=== PATIENT | female | born 1965 | race Caucasian/White ===

== ENCOUNTER → 2016-08-09 | Outpatient (CLI) | payer OTHER | END | disposition home or self-care (01) | LOC: NUC 07:11 | DX: R11.0 Nausea (principal) | CPT/HCPCS: 78264; A9541 ==

== ENCOUNTER → 2016-09-01 | Outpatient (CLI) | payer OTHER ==
[~2016-09-01] VITALS: Ht 160 cm; Wt 75.3 kg
[~2016-09-01] MED LIST: HEMP OIL SQ
== END | disposition home or self-care (01) ==
LOC: AMB 11:53
PROC: 0DB58ZX Excision of Esophagus, Via Natural or Artificial Opening Endoscopic, Diagnostic (ICD-10-PCS; principal; 2016-09-01)
PROC: BD41ZZZ Ultrasonography of Esophagus (ICD-10-PCS; principal; 2016-09-01)
PROC: 0FB04ZX Excision of Liver, Percutaneous Endoscopic Approach, Diagnostic (ICD-10-PCS; principal; 2016-09-01)
DX: C78.7 Secondary malignant neoplasm of liver and intrahepatic bile duct (principal); C77.2 Secondary and unspecified malignant neoplasm of intra-abdominal lymph nodes; F41.1 Generalized anxiety disorder; E66.9 Obesity, unspecified; Z68.29 Body mass index [BMI] 29.0-29.9, adult; Z80.0 Family history of malignant neoplasm of digestive organs
CPT/HCPCS: 88305; 88341 TC; 88342 TC; J0330; J1100; J1885; J2250; J2405; J3010

== ENCOUNTER 2016-10-26 07:30 | Day surgery (SDC) | payer OTHER ==
[~2016-10-26] VITALS: Ht 160 cm; Wt 66.0 kg
[~2016-10-26 07:30] MED LIST changes: +ACID CONTROLLER20 MG PO; +LORATADINE10 M2 PO; +PERCOCET 5/31 TABLET PO; +PROMETHAZINE HC25 M1 PO; +SENOKOT S,PE1 TABLET PO; +ZOFRAN4 MG PO
== END 2016-10-26 10:15 | disposition home or self-care (01) ==
LOC: CATH 07:30
DX: T82.514A Breakdown (mechanical) of infusion catheter, initial encounter (principal); C15.9 Malignant neoplasm of esophagus, unspecified
CPT/HCPCS: C1751; J0690; J1644; J2250; J3010; S0020

== ENCOUNTER → 2017-03-28 | Outpatient (CLI) | payer OTHER ==
[~2017-03-28] VITALS: Ht 160 cm; Wt 49.4 kg
[~2017-03-28] MED LIST changes: -LORATADINE10 M2 PO; +MIRALAX255 GM PO; +ZYRTEC10 M3 PO; +[UNRECOGNIZED DRUG - OTHER] PO
== END | disposition home or self-care (01) ==
LOC: AMB 10:55
DX: C15.5 Malignant neoplasm of lower third of esophagus (principal); R09.02 Hypoxemia; C78.7 Secondary malignant neoplasm of liver and intrahepatic bile duct; F32.9 Major depressive disorder, single episode, unspecified; F41.1 Generalized anxiety disorder; E87.6 Hypokalemia; R13.10 Dysphagia, unspecified; Z92.21 Personal history of antineoplastic chemotherapy; Z80.0 Family history of malignant neoplasm of digestive organs; Z80.3 Family history of malignant neoplasm of breast; Z82.49 Family history of ischemic heart disease and other diseases of the circulatory system
CPT/HCPCS: 76000; C1757; C1769; J1100; J2250; J2405; J2765; J3010

== ENCOUNTER 2017-04-13 14:14 | Observation (INO) | payer OTHER ==
[~2017-04-13] VITALS: Ht 160 cm; Wt 49.4 kg
[~2017-04-13 14:14] MED LIST changes: -PERCOCET 5/31 TABLET PO; +PROTONIX40 MG PO; +VICODIN 5-3001 EACH PO
[2017-04-13 15:12] LABS: HEMATOCRIT 28.2 % (36.0-46.0); MCH 30.7 PG (29.0-34.0); MCHC 31.2 G/DL (30.0-36.0); MCV 98.3 FL (83-99); MEAN PLAT.VOLUME 8.9 uM^3 (9.5-12.4); RBC DIS.WIDTH-CV 17.6 % (11.8-14.6); RBC DIS.WIDTH-SD 63.5 % (39-53); RED BLOOD COUNT 2.87 M/uL (3.80-5.20); WHITE BLOOD COUNT 12.6 K/uL (4.1-10.2)
[2017-04-13 15:14] LABS: PLATELET COUNT 262 K/uL (156-360)
[2017-04-13 15:20] LABS: CHLORIDE 97 mEq/L (99-109); POTASSIUM 3.7 mEq/L (3.7-5.4); SODIUM 137 mEq/L (136-147)
[2017-04-13 15:22] LABS: GLUCOSE 79 mg/dL (70-99)
[2017-04-13 15:24] LABS: ANION GAP 16 MEQ/L (2-14)
[2017-04-13 15:26] LABS: GFR ESTIMATE (CALCULATED) > 59 mL/min/
[2017-04-13 15:27] LABS: UREA NITROGEN (BUN) 11 mg/dL (9-23)
[2017-04-13 16:00] LABS: PLAT.SUFFICIENCY ADEQUATE
[2017-04-13 17:22] LABS: TOTAL BILIRUBIN 1.9 mg/dL (0.0-1.0)
[2017-04-13 17:23] LABS: ALKALINE PHOSPHATASE 939 IU/L (3-129)
[2017-04-13 17:26] LABS: DIRECT BILIRUBIN 1.5 mg/dL (0.0-0.3)
[2017-04-13 22:23] LABS: LIPASE 14 U/L (1.0-51.0)
[2017-04-13] MEDS ORDERED: FAMOTIDINE20 MG PO (22:26)
[2017-04-13 23:36] VITALS: BP 130/79
[2017-04-14 04:55] VITALS: BP 122/77
[2017-04-14 05:39] LABS: HEMATOCRIT 24.2 % (36.0-46.0); MCH 30.9 PG (29.0-34.0); MCV 99.6 FL (83-99); MEAN PLAT.VOLUME 9.3 uM^3 (9.5-12.4); PLATELET COUNT 227 K/uL (156-360); RBC DIS.WIDTH-CV 17.9 % (11.8-14.6); RBC DIS.WIDTH-SD 65.1 % (39-53); RED BLOOD COUNT 2.43 M/uL (3.80-5.20); WHITE BLOOD COUNT 9.8 K/uL (4.1-10.2)
[2017-04-14 05:43] LABS: INTER. NORMALIZED RATIO 1.4; PROTHROMBIN TIME 15.9 SEC (10.2-12.9)
[2017-04-14 06:03] LABS: ALKALINE PHOSPHATASE 749 IU/L (3-129); ANION GAP 17 MEQ/L (2-14); CHLORIDE 99 MEQ/L (99-109); DIRECT BILIRUBIN 0.9 mg/dL (0.0-0.3); GFR ESTIMATE (CALCULATED) > 59 mL/min/; GLUCOSE 97 mg/dL (70-99); POTASSIUM 3.8 MEQ/L (3.7-5.4); SAMPLE HEMOLYSIS CHECK 0; SAMPLE ICTERIC CHECK 0; SAMPLE LIPEMIA CHECK 0; SODIUM 138 MEQ/L (136-147); TOTAL BILIRUBIN 1.8 MG/DL (0.0-1.0); UREA NITROGEN (BUN) 11 mg/dL (9-23)
[2017-04-14 07:18] VITALS: BP 139/90
[2017-04-14 08:48] LABS: ADD MIUA? NO; BILIRUBIN NEGATIVE; BLOOD NEGATIVE; COLOR AMBER ((YELLOW)); GLUCOSE (STRIP) NEGATIVE; KETONES 20; LEUKOCYTES NEGATIVE; NITRITE NEGATIVE; PROTEIN (STRIP) NEGATIVE; SPECIFIC GRAVITY 1.019 (1.000-1.030); UCUL ADDED? NO
[2017-04-14 11:23] VITALS: BP 128/79
[2017-04-14 15:24] VITALS: BP 125/82
[2017-04-14 20:33] VITALS: BP 145/92
[2017-04-15 00:01] VITALS: BP 125/77
[2017-04-15 04:38] VITALS: BP 142/84
[2017-04-15 06:04] LABS: HEMATOCRIT 22.4 % (36.0-46.0); MCH 30.6 PG (29.0-34.0); MCHC 31.3 G/DL (30.0-36.0); MCV 97.8 FL (83-99); PLATELET COUNT 215 K/uL (156-360); RBC DIS.WIDTH-CV 17.9 % (11.8-14.6); RBC DIS.WIDTH-SD 64.3 % (39-53); RED BLOOD COUNT 2.29 M/uL (3.80-5.20); WHITE BLOOD COUNT 11.5 K/uL (4.1-10.2)
[2017-04-15 07:15] VITALS: BP 139/90
[2017-04-15 07:41] LABS: ALKALINE PHOSPHATASE 685 IU/L (3-129); CHLORIDE 101 MEQ/L (99-109); GLUCOSE 133 mg/dL (70-99); POTASSIUM 3.6 MEQ/L (3.7-5.4); SAMPLE HEMOLYSIS CHECK 0; SAMPLE ICTERIC CHECK 0; SAMPLE LIPEMIA CHECK 0; SODIUM 137 MEQ/L (136-147); TOTAL BILIRUBIN 1.6 MG/DL (0.0-1.0); UREA NITROGEN (BUN) 9 mg/dL (9-23)
[2017-04-15 08:16] LABS: GFR ESTIMATE (CALCULATED) > 59 mL/min/; MAGNESIUM 1.9 mg/dl (1.3-2.7)
[2017-04-15 08:22] LABS: ANION GAP 12 MEQ/L (2-14)
[2017-04-15 11:45] VITALS: BP 145/99
[2017-04-15] MEDS ORDERED: TRANSDERM-SCOP1 EACH TD (11:49)
[2017-04-15] MEDS ORDERED: METOCLOPRAMIDE10 MG PO (11:49)
[2017-04-15] MEDS ORDERED: HYOSCYAMINE0.125 MG PO (11:49)
== END 2017-04-15 19:38 | disposition home or self-care (01) ==
LOC: EME 14:14 → EDOF 21:00 → ENRESERV 21:19 → 5WEST 23:13 → ENPENDDIS 04-15 12:13 → 5WEST 04-15 19:38
PROVIDERS: Internal Medicine; Physician Assistant
PROC: 30233N1 Transfusion of Nonautologous Red Blood Cells into Peripheral Vein, Percutaneous Approach (ICD-10-PCS; principal; 2017-04-15)
DX: R17 Unspecified jaundice (principal); R11.2 Nausea with vomiting, unspecified; C78.7 Secondary malignant neoplasm of liver and intrahepatic bile duct; C15.9 Malignant neoplasm of esophagus, unspecified; C78.00 Secondary malignant neoplasm of unspecified lung; D64.9 Anemia, unspecified; D72.829 Elevated white blood cell count, unspecified; Z92.21 Personal history of antineoplastic chemotherapy; Z92.3 Personal history of irradiation; R63.4 Abnormal weight loss; Z82.49 Family history of ischemic heart disease and other diseases of the circulatory system; Z80.3 Family history of malignant neoplasm of breast; Z80.0 Family history of malignant neoplasm of digestive organs
CPT/HCPCS: 74220; 76705; 80048; 80053; 80076; 81003; 83690; 83735; 85027; 85610; 86850; 86900; 86901; 86920; 99281; 99285; G0378; J1100; J1650; J2405; J2550; J2765; J7030; J7042; P9016; S0028